=== PATIENT | female | born 1980 | race Hispanic/Latino ===

== ENCOUNTER 2020-08-29 15:36 | Emergency (ER) | payer SELFPAY ==
[2020-08-29 18:11] LABS: SARS-COV-2 RT PCR POSITIVE (NEGATIVE)
--- NOTE | 2020-08-29 18:17 | ER ---
Nurse's Notes [facility] Name: Francisca Story Age: 40 yrs Sex: Female : 1980 Arrival Date: 08/29/2020 Time: 15:40 Bed 23 Private MD: Diagnosis: Coronavirus infection, unspecified Presentation: 08/29 16:00 Chief complaint: Patient states: Chills, cold sweats, cough, loss of appetite, malaise ca1 x 6 days. Coronavirus screen: Client denies travel out of the [place] in the last 14 days. chills, cough unrelated to allergies, difficulty breathing, fatigue, Client presents with at least one sign or symptom that may indicate coronavirus-19. Standard/surgical mask placed on the client. Provider contacted for isolation considerations. Ebola Screen: Patient negative for fever greater than or equal to 101.5 degrees Fahrenheit, and additional compatible Ebola Virus Disease symptoms Patient denies exposure to infectious person. Patient denies travel to an Ebola-affected area in the 21 days before illness onset. No symptoms or risks identified at this time. Initial Sepsis Screen: Does the patient meet any 2 criteria? No. Patient's initial sepsis screen is negative. Does the patient have a suspected source of infection? No. Patient's initial sepsis screen is negative. Risk Assessment: Do you want to hurt yourself or someone else? Patient reports no desire to harm self or others. Onset of symptoms was August 29, 2020. 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 - Social history:: Smoking status: Patient/guardian denies using tobacco. Screenin:41 Abuse screen: Denies threats or abuse. Denies injuries from another. Nutritional iw screening: No deficits noted. Tuberculosis screening: No symptoms or risk factors identified. Fall Risk None identified. Assessment: 18:00 General: Appears in no apparent distress. Behavior is calm, cooperative. General: iw Reports fever for feeling ill for fatigue for. Pain: Complains of pain in head. Neuro: Level of Consciousness is awake, alert, obeys commands, Oriented to person, place, time, situation, Moves all extremities. Full function. Cardiovascular: Patient's skin is warm and dry. Respiratory: Respiratory effort is even, unlabored, Respiratory pattern is regular, symmetrical. Derm: Skin is intact, is healthy with good turgor. Musculoskeletal: Range of motion: intact in all extremities. Vital Signs: 16:02 BP 122 / 87; Pulse 99; Resp 18 S; Temp 98.5(TE); Pulse Ox 98% on R/A; Weight 76.66 kg ca1 (R); Height 4 ft. 11 in. (149.86 cm) (R); 18:09 BP 109 / 38 Sitting; Pulse 100; Resp 16; Temp 101.0(O); Pulse Ox 96% on R/A; mh5 16:02 Body Mass Index 34.13 (76.66 kg, 149.86 cm) ca1 ED Course: 15:40 Patient arrived in ED. as 15:59 Nevin Calder[facility]-C [facility] kb 15:59 Cee Gong MD is Attending Physician. kb 16:01 Triage completed. ca1 16:01 Arm band placed on right wrist. ca1 17:05 Robyn Clark, LIZZIE is Primary Nurse. iw 18:10 Patient has correct armband on for positive identification. Bed in low position. Call 5 light in reach. Side rails up X 1. Pulse ox on. NIBP on. 18:41 No provider procedures requiring assistance completed. Patient did not have IV access iw during this emergency room visit. Administered Medications: 18:31 Drug: Tylenol 1000 mg Route: PO; iw Outcome: 18:17 Discharge ordered by . kb 18:41 Discharged to home ambulatory, with family. iw 18:41 Condition: good 18:41 Discharge instructions given to patient, Instructed on discharge instructions, follow up and referral plans. Demonstrated understanding of instructions, follow-up care. 18:42 Patient left the ED. iw Signatures: Nevin Calderón FNP-C FNP-Lucinda Marin as Robyn Clark RN RN [facility] Maryellen Painter RN RN [facility]
--- NOTE | 2020-08-29 18:17 | EDPHYS ---
Physician Documentation [facility] Name: Francisca Story Age: 40 yrs Sex: Female : 1980 Arrival Date: 08/29/2020 Time: 15:40 Bed 23 Private MD: ED Physician Cee Gong HPI: 08/29 23:21 This 40 yrs old Female presents to ER via Ambulatory with complaints of Cold kb Symptoms. 23:21 The patient or guardian reports cough, that is intermittent, described as mild, with no kb sputum, flu symptoms, myalgias, no appetite. Onset: The symptoms/episode began/occurred 6 day(s) ago. Severity of symptoms: At their worst the symptoms were moderate, in the emergency department the symptoms are unchanged. Modifying factors: The symptoms are alleviated by nothing, the symptoms are aggravated by nothing. Associated signs and symptoms: The patient has no apparent associated signs or symptoms. The patient has not experienced similar symptoms in the past. The patient has not recently seen a physician. 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 - Social history:: Smoking status: Patient/guardian denies using tobacco. ROS: 23:20 Cardiovascular: Negative for chest pain, palpitations, and edema, Abdomen/GI: Negative kb for abdominal pain, nausea, vomiting, diarrhea, and constipation, MS/Extremity: Negative for injury and deformity, Skin: Negative for injury, rash, and discoloration, Neuro: Negative for headache, weakness, numbness, tingling, and seizure. 23:20 Constitutional: Positive for chills, fatigue, malaise, poor PO intake. 23:20 Respiratory: Positive for cough, Negative for dyspnea on exertion, hemoptysis, orthopnea, pleurisy, shortness of breath, sputum production, wheezing. Exam: 23:21 Constitutional: This is a well developed, well nourished patient who is awake, alert, kb and in no acute distress. Head/Face: Normocephalic, atraumatic. Respiratory: Respirations even and unlabored. No increased work of breathing, no retractions or nasal flaring. Skin: Warm, dry with normal turgor. Normal color. MS/ Extremity: Pulses equal, no cyanosis. Neurovascular intact. Full, normal range of motion. Neuro: Awake and alert, GCS 15, oriented to person, place, time, and situation. Moves all extremities. Normal gait. Vital Signs: 16:02 BP 122 / 87; Pulse 99; Resp 18 S; Temp 98.5(TE); Pulse Ox 98% on R/A; Weight 76.66 kg ca1 (R); Height 4 ft. 11 in. (149.86 cm) (R); 18:09 BP 109 / 38 Sitting; Pulse 100; Resp 16; Temp 101.0(O); Pulse Ox 96% on R/A; mh5 16:02 Body Mass Index 34.13 (76.66 kg, 149.86 cm) ca1 MDM: 15:59 Patient medically screened. kb 23:19 Data reviewed: vital signs, nurses notes. Data interpreted: Pulse oximetry: on room air kb is 96 %. Interpretation: normal. Counseling: I had a detailed discussion with the patient and/or guardian regarding: the historical points, exam findings, and any diagnostic results supporting the discharge/admit diagnosis, lab results, the need for outpatient follow up, a family practitioner, to return to the emergency department if symptoms worsen or persist or if there are any questions or concerns that arise at home. 08/29 18:11 Order name: COVID-19/FLU A+B; Complete Time: 18:11 EDMS Administered Medications: 18:31 Drug: Tylenol 1000 mg Route: PO; iw Disposition: 08/29/20 18:17 Discharged to Home. Impression: Coronavirus infection, unspecified. - Condition is Stable. - Discharge Instructions: Viral Respiratory Infection, [id number], COVID-19. - Medication Reconciliation Form, Thank You Letter, Antibiotic Education, Prescription Opioid Use form. - Follow up: Emergency Department; When: As needed; Reason: Worsening of condition. Follow up: Private Physician; When: 2 - 3 days; Reason: Recheck today's complaints, Continuance of care, Re-evaluation by your physician. Addendum: 08/30/2020 18:44 Co-signature as Attending Physician, Cee Gong MD. m a2 Signatures: Dispatcher [employer] EDSD Stephane Nevin, PROCESS SAFETY MANAGEMENT ENGINEER-C PROCESS SAFETY MANAGEMENT ENGINEER-Robyn May, RN RN iw Cee Gong MD MD ma2 Maryellen Painter RN RN ca1 Corrections: (The following items were deleted from the chart) 08/29 17:11 16:04 Influenza Screen (A \T\ B)+BA.LAB.BRZ ordered. EDSD EDMS 17:11 16:04 CORONAVIRUS+MR.LAB.BRZ ordered. EDSD EDMS 18:42 18:17 08/29/2020 18:17 Discharged to Home. Impression: Coronavirus infection, iw unspecified. Condition is Stable. Forms are Medication Reconciliation Form, Thank You Letter, Antibiotic Education, Prescription Opioid Use. Follow up: Emergency Department; When: As needed; Reason: Worsening of condition. Follow up: Private Physician; When: 2 - 3 days; Reason: Recheck today's complaints, Continuance of care, Re-evaluation by your physician. kb
[2020-08-29] MEDS ORDERED: ACETAMINOPHEN 500 MG TAB ONE (18:43)
[2020-08-29 20:34] VITALS: BP 109/38; TEMP 101; O2SAT 96
== END 2020-08-29 18:42 | disposition home or self-care (01) ==
LOC: ER 15:36
DX: U07.1 COVID-19 (principal)
CPT/HCPCS: 0240U; 99283